=== PATIENT | male | born 2000 | race Two or more races ===

== ENCOUNTER 2022-04-18 20:17 | Emergency (ER) | payer MEDICAID ==
[~2022-04-18] VITALS: Ht 165.1 cm; Wt 91.0 kg
[2022-04-18] MEDS ORDERED: MENT113O8 TP (22:14)
[2022-04-18] MEDS ORDERED: DIPH25CA83 MT (22:14)
[2022-04-18] MEDS ORDERED: TC1U15 TP (22:14)
[2022-04-18 22:20] VITALS: BP 132/78
== END 2022-04-18 22:22 | disposition home or self-care (01) ==
LOC: ER 20:17
DX: L30.9 Dermatitis, unspecified (principal)
CPT/HCPCS: 99283